=== PATIENT | male | born 1990 | race African-American/Black ===

== ENCOUNTER 2023-07-11 15:33 | Inpatient (IN) | payer OTHER, SELFPAY ==
[2023-07-11] VITALS (37 sets, daily range): BP systolic 177–211; BP diastolic 120–161; PULSE 56–80; RESP 14–61; TEMP 36.7–36.9; O2SAT 97–100; BMI 25.5
--- NOTE | ~2023-07-11 | CT_ITS ---
EXAMINATION: CTA chest abdomen pelvis DATE: 07/11/2023 18:00 QUARANTINE OFFICER INDICATION: Chest pain. Hypertension. Evaluate for dissection. TECHNIQUE: Computed tomographic angiography (CTA) of the chest, abdomen, and pelvis was performed wit hout and with 100 mL Omnipaque-350 intravenous contrast. The dose-length product was 941.59 mGy-cm. M aximum intensity projection 3D-reconstructions of the aorta and other arteries were constructed by eboni gil technologist on a separate workstation. COMPARISON: None. FINDINGS: CHEST CTA: There is mild atherosclerosis of the aortic arch and coronary arteries, accelerated for age. Mild car diomegaly. Left ventricular hypertrophy. No significant pleural or pericardial effusion. No thoracic lymphadenopathy. There is gynecomastia. Calcified mediastinal lymph nodes, consistent with chronic gr anulomatous disease. Dependent atelectasis. No focal pneumonia or pneumothorax. No endobronchial lesi ons. ABDOMEN AND PELVIS CTA: The liver, spleen, pancreas, left adrenal gland and kidneys are unremarkable. There is a low-density lesion of the right adrenal gland measuring 1.4 cm, most likely benign adenoma. Gallbladder is presen t. Nonobstructive bowel gas pattern. There is extensive atherosclerosis of the abdominal aorta and il iac arteries, accelerated for age. No aneurysm. The celiac axis, SMA and renal arteries are patent. I MA is patent. No abnormal pelvic masses or fluid collections. IMPRESSION: 1. Accelerated atherosclerosis for age without evidence for aneurysm or dissection. 2: Cardiomegaly. Reviewed, dictated and finalized at location A. ANTINE OFFICER IMPRESSION: 1. Accelerated atherosclerosis for age without evidence for aneurysm or dissect ion. 2: Cardiomegaly.
--- NOTE | ~2023-07-11 | XR_ITS ---
EXAMINATION: XR chest 1V portable 07/11/2023 16:07 INDICATION: Chest pain and shortness of breath PROCEDURE: AP portable chest COMPARISON: 11/12/2015 FINDINGS: Right basilar infiltrates, suspicious for pneumonia The cardiomediastinal silhouette is wit hin normal limits. There are no pleural effusions. There is no pneumothorax suspected. IMPRESSION: 1: Right basilar infiltrates, suspicious for pneumonia. Reviewed, dictated and finalized at location A. PATIONAL SAFETY AND HEALTH MANAGER
--- NOTE | 2023-07-11 15:41 | ECG_ITS ---
Measurements Intervals [place] Rate: 59 P: 52 VT: 159 QRS: 62 QRSD: 83 T: -7 QT: 406 QTc: 402 Interpretive Statements SINUS BRADYCARDIA LEFT VENTRICULAR HYPERTROPHY WITH SECONDARY REPOLARIZATION ABNORMALITY CANNOT RULE OUT PREVIOUS SEPTAL IN ABNORMAL ECG COMPARED TO ECG 07/11/2023 15:35:01 NO SIGNIFICANT CHANGE Electronically Signed On 07-12-2023 14:57:14 PUBLIC RELATIONS PROFESSIONAL by Manuel Allen M.D.
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
[2023-07-11 15:58] LABS: Basophils Percent Auto 0.4 % (0.2-1.2); Eosinophils Absolute Auto 0.2 K/mm3 (0-0.3); Eosinophils Percent Auto 1.6 % (0-4.4); Hematocrit 42.1 % (42.0-52.0); Hemoglobin 13.8 g/dL (14.0-18.0); Immature Granulocyte Absolute 0.02 K/mm3 (0.00-0.031); Immature Granulocyte Percent A 0.2 % (0-0.5); Lymphocytes Absolute Auto 1.84 K/mm3 (0.9-3.2); Lymphocytes Percent Auto 17.8 % (18.3-44.2); Mean Corpuscular HGB Conc 32.8 g/dl (32-36); Mean Corpuscular Hemoglobin 28.8 pg (26-34); Mean Corpuscular Volume 87.9 fl (80-100); Mean Platelet Volume 10.6 fl (7.4-10.4); Monocytes Absolute Auto 0.9 K/mm3 (0.1-0.6); Monocytes Percent Auto 8.8 % (2.6-8.5); Neutrophils Absolute Auto 7.3 K/mm3 (1.3-6.7); Neutrophils Percent Auto 71.2 % (45.5-73.1); Platelet Count Result 215 k/mm3 (150-375); Red Blood Count 4.79 M/mm3 (4.6-6.20); Red Cell Distribution Width 12.1 % (11.5-14.5); White Blood Count 10.3 K/mm3 (4.5-10.0)
[2023-07-11 16:09] LABS: Partial Thromboplastin Time 27.1 SECONDS (22.3-36.8); Prothrombin Time 13.7 Seconds (11.1-14.7)
[2023-07-11 16:13] LABS: Alanine Aminotransferase 22 U/L (6-50); Albumin Level 4.2 g/dL (3.5-5.1); Alkaline Phosphatase 83 U/L (38-126); Anion Gap 7 mmol/L (8-16); Aspartate Amino Transferase 36 U/L (17-59); Bilirubin,Total 0.5 mg/dL (0.2-1.3); Blood Urea Nitrogen 14 mg/dL (9-20); Calcium 9.4 mg/dL (8.4-10.2); Carbon Dioxide 27 mmol/L (22-30); Chloride 103 mmol/L (98-107); Estimated CRCL calculation 115 ml/min; Estimated Glomerular Filt Rate > 60; Glucose 120 mg/dL (65-110); Lipase 90 U/L (23-300); Potassium 3.8 mmol/L (3.4-5.0); Sodium 137 mmol/L (137-145)
[2023-07-11 16:30] LABS: NT Pro B Type Natriuretic Pept 753 pg/mL (19.9-100); Troponin I 0.917 ng/mL (0.000-0.034)
[2023-07-11 16:49] LABS: Influenza A QL RT-PCR Negative (Negative); Influenza B QL RT-PCR Negative (Negative); SARS-CoV-2 RNA PCR Negative (Negative)
--- NOTE | 2023-07-11 17:27 | ECG_ITS ---
Measurements Intervals [place] Rate: 74 P: 56 VA: 154 QRS: 52 QRSD: 83 T: -56 QT: 382 QTc: 426 Interpretive Statements SINUS RHYTHM POSSIBLE LEFT ATRIAL ENLARGEMENT [-0.1mV P WAVE IN V1/V2] LEFT VENTRICULAR HYPERTROPHY WITH SECONDARY REPOLARIZATION ABNORMALITY ABNORMAL ECG NO PREVIOUS ECG AVAILABLE FOR COMPARISON Electronically Signed On 07-12-2023 13:04:19 DATA REVIEW SPECIALIST by Manuel Allen M.D.
[2023-07-11] MEDS: ESMOLOL HCL 100 MG/10 ML VIAL 20 MG IV PUSH (18:07)
[2023-07-11] MEDS: FUROSEMIDE INJ 40 MG/4 ML VIAL IV PUSH (19:00)
[2023-07-11 19:29] LABS: Amphetamine Screen Urine Negative (Negative); Barbiturate Screen Urine Negative (Negative); Benzodiazepines Screen Urine Negative (Negative); Cannabinoid Screen Urine Positive (Negative); Cocaine Screen Urine Positive (Negative); Methadone Screen Urine Negative (Negative); Opiate Screen Urine Negative (Negative); Phencyclidine Screen Urine Negative (Negative)
[2023-07-11] MEDS: HEPARIN SODIUM 5,000 UNITS/ML VIAL 4000 UNITS IV PUSH (19:46)
[2023-07-11 19:47] LABS: Troponin I 0.795 ng/mL (0.000-0.034)
[2023-07-11] MEDS: HEPARIN SOD/D5W 100 UNITS/ML 25,000 UNITS/250 ML BAG 10 UNITS IV CONT (19:47)
--- NOTE | 2023-07-11 21:35 | ADMGEN ---
This patient, Erwin Manuel, was admitted to Intensive Care Unit-3. Patient/family oriented to hospital policies and general routines including ID bracelet, bed and alarms, visiting hours, pain management, procedures, bathroom and other care routines, personal items, smoking policy, room service/diet, and visiting hours. Information on how to activate the Rapid Response Team has been discussed. Patient/Family are encouraged to report perceived risks to care and to ask questions if they do not understand what they are told or what they should do.
[2023-07-11] MEDS: NITROGLYCERIN/D5W 200 MCG/ML 50 MG/250 ML BTL IV CONT (21:45)
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
[2023-07-12] VITALS (40 sets, daily range): BP systolic 126–213; BP diastolic 67–154; PULSE 54–84; RESP 12–25; TEMP 35.8–36.8; O2SAT 94–100
[2023-07-12] MEDS: LACTATED RINGERS 1,000 ML 125 ML IV CONT ×2 (00:20→07:59)
[2023-07-12 02:25] LABS: Partial Thromboplastin Time 39.1 SECONDS (22.3-36.8)
[2023-07-12] MEDS: levETIRAcetam 500 MG TABLET PO ×3 (04:51→20:56)
[2023-07-12] MEDS: HEPARIN SODIUM 5,000 UNITS/ML VIAL 4000 UNITS IV PUSH ×2 (04:52→11:18)
[2023-07-12 05:08] LABS: Basophils Percent Auto 0.3 % (0.2-1.2); Eosinophils Absolute Auto 0.2 K/mm3 (0-0.3); Eosinophils Percent Auto 1.9 % (0-4.4); Hematocrit 42.3 % (42.0-52.0); Immature Granulocyte Absolute 0.03 K/mm3 (0.00-0.031); Immature Granulocyte Percent A 0.3 % (0-0.5); Lymphocytes Absolute Auto 2.84 K/mm3 (0.9-3.2); Lymphocytes Percent Auto 27.7 % (18.3-44.2); Mean Corpuscular HGB Conc 33.1 g/dl (32-36); Mean Corpuscular Hemoglobin 29.4 pg (26-34); Mean Corpuscular Volume 88.9 fl (80-100); Mean Platelet Volume 11.1 fl (7.4-10.4); Neutrophils Absolute Auto 6.1 K/mm3 (1.3-6.7); Neutrophils Percent Auto 59.8 % (45.5-73.1); Platelet Count Result 210 k/mm3 (150-375); Red Blood Count 4.76 M/mm3 (4.6-6.20); White Blood Count 10.3 K/mm3 (4.5-10.0)
[2023-07-12 05:24] LABS: Anion Gap 9 mmol/L (8-16); Blood Urea Nitrogen 11 mg/dL (9-20); Calcium 9.4 mg/dL (8.4-10.2); Carbon Dioxide 23 mmol/L (22-30); Chloride 102 mmol/L (98-107); Estimated CRCL calculation 115 ml/min; Estimated Glomerular Filt Rate > 60; Glucose 105 mg/dL (65-110); Potassium 3.6 mmol/L (3.4-5.0); Sodium 134 mmol/L (137-145)
--- NOTE | 2023-07-12 06:00 | ECHO_ITS ---
Patient Info Name: Erwin Manuel Age: 33 years : 1990 Gender: Male Ht: 73 in Wt: 193 lbs BSA: 2.13 m2 HR: 66 bpm BP: 170 / 119 mmHg Heart Rhythm: Sinus Rhythm Technical Quality: Fair Exam Date: 07/12/2023 7:35 AM Exam Location: Echo Lab Patient Status: Inpatient Admit Date: 07/11/2023 Staff Ordering Physician: Shannon Rosen MD Zinc Miner Blasting: Soni Arambula RDCS Attending Provider: Zoey Lozano DO Referring Physician: Silas LEVY; Exam Type: CA echo doppler color flow Study Info Indications - NSTEMI Complete two-dimensional, color flow and Doppler transthoracic echocardiogram is performed. Summary 1. Complete two-dimensional, color flow and Doppler transthoracic echocardiogram is performed. 2. Severe concentric left ventricular hypertrophy with mild global systolic dysfunction. 3. No valvular abnormalities. Left Ventricle Left ventricular chamber dimension is mildly enlarged. Left ventricular systolic function is mildly reduced, estimated at 40-45%. There is severe concentric increased left ventricular wall thickness. The left ventricular diastolic function is grade I diastolic dysfunction. Right Ventricle Right ventricular chamber dimension is normal. Left Atria Left atrial chamber dimension is mildly enlarged. Right Atria Right atrial chamber dimension is normal. Aortic Valve The aortic valve is normal. Pulmonic Valve The pulmonic valve is normal. Mitral Valve The mitral valve has normal leaflets. Tricuspid Valve The tricuspid valve leaflets are normal. Pericardium/Pleural The pericardium appears normal. Aorta The aortic root size at the sinus of Valsalva is normal. Left Ventricular Outflow Tract Name Value Normal LVOT 2D LVOT Diameter 2.0 cm LVOT Doppler LVOT Peak Gradient 2 mmHg LVOT Mean Gradient 1 mmHg LVOT VTI 12 cm LVOT VTI/AV VTI Ratio 0.5 LVOT Stroke Volume 38 ml LVOT CO 2.1 l/min LVOT CI 1.0 l/min/m2 Pulmonic Valve Name Value Normal RVOT Doppler RVOT Peak Gradient 1 mmHg PV Doppler PV Peak Gradient 3 mmHg Mitral Valve Name Value Normal MV Doppler MV Decel [place] 486 cm/s2 MV PHT 42 ms MV Area (PHT) 5.2 cm2 4.0-5.0 MV Diastolic Function M
--- NOTE | 2023-07-12 07:40 | PC.NURSE ---
New order for Nitroglycerin gtt entered under Dr. Yepez for the titration of the medication to sustain SBP 160-180. ED order for Nitroglycerin d/c'd per MD order.
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
--- NOTE | 2023-07-12 08:17 | WPDCNINT ---
Assessment and Plan Assessment and plan (1) NSTEMI (non-ST elevated myocardial infarction): Code(s): I21.4 - Non-ST elevation (NSTEMI) myocardial infarction Status: Acute Assessment and Plan: Patient presented with chest pain, elevated troponins which peaked at 2.7 this morning on 07/12 -patient was started on heparin infusion upon admission -appreciate cardiology evaluation and recommendations, patient will be taken to cardiac catheterization for an angiography -according the claims sorter's note echocardiogram which been done will as he was evaluating the patient, echo did appear to show evidence of LV systolic dysfunction, complete echocardiogram result has not been reported -will continue aspirin (2) Hypertensive emergency: Code(s): I16.1 - Hypertensive emergency Status: Acute Assessment and Plan: Patient presented with blood pressures of 200/131 in the ER -patient did test positive for cocaine and his drug screen -patient was started on nitroglycerin infusion, will titrate to maintain SBP 160-180 mmHg -patient has been started on his home amlodipine, lisinopril, hydralazine -will continue to monitor blood pressures closely (3) Cocaine abuse: Code(s): F14.10 - Cocaine abuse, uncomplicated Status: Acute Assessment and Plan: Patient history of cocaine abuse, have counseled patient on cessation (4) Alcohol abuse: Code(s): F10.10 - Alcohol abuse, uncomplicated Status: Acute Assessment and Plan: Counseled patient on cessation of alcohol use along with cocaine and tobacco use - patient has been started on thiamine and folic acid -will watch for alcohol withdrawal (5) Tobacco abuse disorder: Code(s): Z72.0 - Tobacco use Status: Acute Assessment and Plan: Counseled patient on tobacco cessation Plan DVT prophylaxis: Heparin infusion Stress ulcer prophylaxis: Not indicated Nutrition: NPO Code Status: Full code Critical Care Time Spent: 46 minutes Due to a high probability of clinically significant, life threatening deterioration, the patient required my highest level of preparedness to intervene emergently and I personally spent this critical care time directly and personally managing the patient. This critical care time included obtaining a history; examining the patient; pulse oximetry; ordering and review of studies; arranging urgent treatment with development of a management plan; evaluation of patient's response to treatment; frequent reassessment; and discussions with other providers. It was exclusive of separately billable procedures and treating other patients and teaching time. Please see Assessment and Plan section and the rest of the note for further information on patient assessment and treatment This dictation may have been done utilizing a voice recognition system. Attempts have been made to correct errors. However, there may be uncorrected grammatical, spelling, and recognitions errors present. Shaft Headman Consult Note Consult date: 07/12/23 Reason for consult: NSTEMI, hypertensive emergency, heart failure HPI: Erwin Manuel is a 33 year old male with past medical history of essential hypertension, hyperlipidemia, tobacco abuse, cocaine abuse, seizure disorder depression, alcohol abuse presented the ED on 07/11/2023 with complains of intermittent chest pain last couple of months. Patient stated he had nonexertional chest pain, nonradiating. Not associated with diaphoresis, shortness of breath, nausea vomiting. On the day of admission this chest pain was more severe and felt a sense of chest tightness. In the ED ER patient was also found to have hypertensive urgency with a blood pressure of 200/131. EKG showed some early repolarization with no ST-elevation. Patient also was tested positive for cocaine in his drug screen. CTA was negative for dissection. Has a family history of coronary artery disease is and stated that h
[2023-07-12] MEDS: CITALOPRAM HYDROBROMIDE 20 MG TABLET 40 MG PO (08:35)
[2023-07-12] MEDS: PHENYTOIN SODIUM 100 MG EXTENDED RELEASE CAP 200 MG PO ×3 (08:36→16:24)
[2023-07-12] MEDS: THIAMINE HCL 100 MG TABLET PO (08:36)
[2023-07-12] MEDS: GABAPENTIN 300 MG CAPSULE PO ×3 (08:36→16:24)
[2023-07-12] MEDS: lisinopriL 20 MG TABLET 40 MG PO (08:36)
[2023-07-12] MEDS: FOLIC ACID 1 MG TABLET PO (08:36)
[2023-07-12] MEDS: hydrALAZINE HCL 50 MG TABLET PO ×2 (08:36→16:24)
[2023-07-12] MEDS: amLODIPine BESYLATE 5 MG TABLET 10 MG PO (08:36)
[2023-07-12] MEDS: NITROGLYCERIN/D5W 200 MCG/ML 50 MG/250 ML BTL IV CONT (09:30)
[2023-07-12] MEDS: ASPIRIN 81 MG CHEWABLE TABLET PO (10:24)
[2023-07-12 11:10] LABS: Partial Thromboplastin Time 50.3 SECONDS (22.3-36.8)
--- NOTE | 2023-07-12 11:17 | WPDMODSED ---
Moderate Sedation Note-Pt Data Patient Data Diagnosis: chest pain/elevated troponin longstanding hypertension cocaine abuse Present Complaint: this is a 33-year-old man presented to hospital with chest pain and he had a moderate troponin rise following admission. electrocardiogram did not show any evidence of acute current of injury. He appears to have some LV systolic dysfunction by echo. In this setting an angiogram has been recommended. He also has a history of cocaine abuse Procedure to be performed/Plan: left heart catheterization Allergies Allergy/AdvReac Type Severity Reaction Status Date / Time bee venom protein (honey bee) Allergy Dyspnea / Verified 07/11/23 15:43 [bees] SOB honey Allergy Dyspnea / Verified 07/11/23 15:43 SOB peanut Allergy Dyspnea / Verified 07/11/23 15:43 SOB Home Medications Medication Instructions Recorded Confirmed Type amlodipine 10 mg tablet 10 mg PO DAILY 07/11/23 07/11/23 History citalopram 40 mg tablet 40 mg PO DAILY 07/11/23 07/11/23 History folic acid 1 mg tablet 1 mg PO DAILY 07/11/23 07/11/23 History gabapentin 300 mg capsule 300 mg PO Q8-12H 07/11/23 07/11/23 History hydralazine 50 mg tablet 50 mg PO BID 07/11/23 07/11/23 History levetiracetam 500 mg tablet 500 mg PO BID 07/11/23 07/11/23 History lisinopril 40 mg tablet 40 mg PO DAILY 07/11/23 07/11/23 History phenytoin sodium extended 100 mg 200 mg PO Q8-12H 07/11/23 07/11/23 History capsule thiamine HCl (vitamin B1) 100 mg 100 mg PO DAILY 07/11/23 07/11/23 History tablet Current Medications: Active Medications Acetaminophen (Acetaminophen 325 Mg Tablet) 650 mg PO Q4H PRN PRN Reason: Mild Pain (1-3) or Fever Amlodipine Besylate (Amlodipine Besylate 5 Mg Tablet) 10 mg PO DAILY [facility] Last Admin: 07/12/23 08:36 Dose: 10 mg Aspirin (Aspirin 81 Mg Chewable Tablet) 81 mg PO DAILY@0800 [facility] Last Admin: 07/12/23 10:24 Dose: 81 mg Citalopram Hydrobromide (Citalopram Hydrobromide 20 Mg Tablet) 40 mg PO DAILY [facility] Last Admin: 07/12/23 08:35 Dose: 40 mg Folic Acid (Folic Acid 1 Mg Tablet) 1 mg PO DAILY [facility] Last Admin: 07/12/23 08:36 Dose: 1 mg Gabapentin (Gabapentin 300 Mg Capsule) 300 mg PO TID [facility] Last Admin: 07/12/23 08:36 Dose: 300 mg Heparin Sodium (Porcine) (Heparin Sodium 5,000 Units/Ml Vial) 4,000 units IV PUSH PRN PRN PRN Reason: aPTT less than 55 seconds Last Admin: 07/12/23 04:52 Dose: 4,000 units Heparin Sodium (Porcine) (Heparin Sodium 5,000 Units/Ml Vial) 4,000 units IV PUSH PRN PRN PRN Reason: aPTT 55 - 70 seconds Hydralazine HCl (Hydralazine Hcl 50 Mg Tablet) 50 mg PO BIDWM [facility] Last Admin: 07/12/23 08:36 Dose: 50 mg Heparin Sodium/Dextrose (Heparin Sodium/D5w 100 Units/Ml) 25,000 units in 250 mls @ 14 mls/hr IV CONT .[id number] [facility]; Protocol Last Titration: 07/12/23 04:53 Dose: 1,400 units/hr, 14 mls/hr Lactated Ringer's (Lr - Lactated Ringers Iv) 1,000 mls @ 75 mls/hr IV CONT .[id number] [facility] Last Infusion: 07/12/23 08:06 Dose: 75 mls/hr Nitroglycerin/Dextrose (Nitroglycerin In 5% Dextrose 50 Mg) 50 mg in 250 mls @ 7.5 mls/hr IV CONT .Q24H [facility]; Protocol Last Titration: 07/12/23 10:51 Dose: 25 mcg/min, 7.5 mls/hr Levetiracetam (Levetiracetam 500 Mg Tablet) 500 mg PO Q12HR [facility] Last Admin: 07/12/23 08:36 Dose: 500 mg Lisinopril (Lisinopril 20 Mg Tablet) 40 mg PO DAILY [facility] Last Admin: 07/12/23 08:36 Dose: 40 mg Ondansetron HCl (Ondansetron Inj 4 Mg/2 Ml Vial) 4 mg IV PUSH Q4H PRN PRN Reason: Nausea Perflutren Lipid Microsphere (Perflutren Lipid Microspheres 1.5 Ml Vial Diluted To 10 Ml Total Volume) 0 ml IV PUSH ONCE PRN; Protocol PRN Reason: adequate visualization Stop: 07/14/23 20:27 Phenytoin Sodium (Phenytoin Sodium 100 Mg Extended Release Cap) 200 mg PO TID [facility] Last Admin: 07/12/23 08:36 Dose: 200 mg Thiamine HCl (Thiamine Hcl 100 Mg Tablet) 100 mg PO DAILY [facility] Last Admin: 07/12/23 08:36 Dose: 100 mg Sedation/Ane
--- NOTE | 2023-07-12 11:40 | PC.NURSE ---
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 Nitroglycerin gtt sent with patient. Heparin gtt and fluids stopped by geochemical laboratory technician team
--- NOTE | 2023-07-12 12:24 | WPDCARDPROC ---
Cardiac Cath Procedure Note Date of procedure:: 07/12/23 Performing physician:: Manuel Allen MD Indication:: acute coronary syndrome/ non ST elevation CA Brief clinical history:: this is a 33-year-old man with a history of hypertension, cigarette smoking as well as cocaine and alcohol abuse. He entered the hospital yesterday with some chest pain and has had a moderate troponin rise. In the setting of this angiography has been recommended. Procedure Procedure performed:: Left ventriculogram coronary angiogram Angio-Seal to right femoral artery Sedation/Medication given:: fentanyl 50 mg Versed 2 mg case start time 11:58 a.m. case end time 12:20 p.m. sedation provided by Ousmane Diego RN, trained observer Access site:: right femoral artery Estimated blood loss:: 25 cc Procedure note:: patient was brought to the cardiac catheterization lab in the postabsorptive state where the right femoral triangle was prepared and draped in the usual fashion. Anesthesia was provided with 1% lidocaine infiltrated locally. Using the modified Seldinger technique a 5 Malagasy sheath was placed into the right femoral artery. After this left heart catheterization was carried out. I used a 5 Malagasy angled pigtail catheter to measure left-sided hemodynamics as well as to inject left ventriculogram in the 30 degree [id number] projection. Following this a 5 Malagasy FL4 catheter was used to engage inject the left coronary artery in multiple projections and then a 5 Malagasy JR4 catheter was used to engage and inject the right coronary artery. The cineangiograms were then reviewed and the case was terminated. An angiogram was done of the femoral artery through the sheath after which a 6 Malagasy Angio-Seal device was deployed with a good hemostatic result. Procedure was well tolerated and uncomplicated. Findings:: Hemodynamics: Central aortic pressure was 172 over 105 left ventricle 172 over 3 and diastolic pressure 14 there is no gradient on pullback across the aortic valve. Left ventricle: The LV is modestly enlarged and significantly hypertrophied there is global hypokinesia with an ejection fraction of about 35-40%. the coronary arteries are all large in caliber ectatic and tortuous in appearance Left main coronary artery is large caliber has some mild plaquing but no significant disease is seen. The anterior descending is a large caliber somewhat tortuous vessel. There is no significant stenosis in the LAD itself. There is about 40-50% stenosis in the mid to distal segment of the LAD. The major diagonal branch has proximal stenosis of about 80% and 80-90% diffuse distal stenosis distal to that this is a trifurcating diagonal branch. The circumflex is a ectatic vessel in as well. The circumflex has significant proximal tortuosity there is a paucity of marginal branches. The largest distal OM branches free of significant disease. the right coronary artery is large in caliber also ectatic and rather tortuous. The right coronary is free of significant disease in the trunk of the RCA. There is abrupt change in caliber in the midportion of the RPDA with KHADRA 2 flow distal to this. The distal RPDA can be seen to be collateralized from the LAD left coronary injections. Conclusion:: 1. Right coronary circulation with coronary arteries that are also ectatic, dilated and tortuous. 2. About 40-50% stenosis in the mid to distal LAD, approximately 80-90% stenosis in the major diagonal branch which is a diffusely diseased vessel. 3. Large ectatic Nicole dilated and tortuous right coronary artery without significant lesions the until the RPDA which appears to have significant mid stenosis which is also collateralized distal to that foot via the LAD. 4. Moderate left ventricular systolic dysfunction 5. significant hypertension Manuel Allen MD [facility]
--- NOTE | 2023-07-12 12:32 | PM.PNCARD ---
Progress Note: A&P Assessment and Plan (1) NSTEMI (non-ST elevated myocardial infarction): Code(s): I21.4 - Non-ST elevation (NSTEMI) myocardial infarction Status: Acute Plan 33-year-old man with longstanding hypertension also unfortunately with alcohol and cocaine abuse. Patient presents with non ST elevation AR and has surprisingly diffuse coronary artery disease at a premature age. He has coronary is that are ectatic, dilated and rather tortuous. the only notable high-grade lesion appears to be in the major diagonal branch of the LAD which is a diffusely diseased artery as well as high-grade stenosis in the mid RPDA which is collateralized via the anterior descending. He has severe hypertension and moderate LV systolic dysfunction. At this point I would recommend optimizing medical/guideline directed medical therapy for this. Because of the nature of his coronary disease as well as the on likelihood of compliance with anti-platelet therapy he is a suboptimal candidate for PCI in my opinion Manuel Allen MD [facility] Subjective Date/time seen: date of service:07/12/23 12:32 Interval history: 33-year-old man with: Chest pain, Wilber biomarkers consistent with non ST elevation AR also with history of significant hypertension and cocaine and alcohol abuse. Catheterization this afternoon demonstrates remarkably premature coronary artery disease with a coronary arteries that are ectatic Nicole dilated and rather tortuous. The only high-grade lesion noted is in a diagonal branch of the LAD which is a diffusely diseased artery as well. Medical therapy for this is going to be recommended given the fact that the vessels are certainly not ideal for PCI and his reliability/compliance with follow-up and adherence to antiplatelet therapy is a significant concern Exam Const: General: comfortable and no acute distress Other: well-developed well-nourished gentleman no distress HENMT: Mouth: Yes moist mucous membranes Eyes: Sclera: sclerae normal Neck: Neck: supple and no JVD Resp: Effort & Inspection: normal respiratory effort Auscultation: clear to auscultation bilaterally Cardio: Rate: regular rate Rhythm: regular rhythm GI: GI Palp: Yes Soft to palpation Auscultation: normal bowel sounds Skin: General skin exam: normal color Neuro: Other: alert and oriented x3 Extrem: Other: no edema, adequate perfusion Objective Data Vital Signs Vital Signs: Vital Signs - 24 hr 07/11/23 15:31 07/11/23 15:31 07/11/23 15:52 Temperature Pulse Rate 75 74 Respiratory Rate 20 Blood Pressure 200/131 H Pulse Oximetry 100 99 Oxygen Delivery Room Air Room Air 07/11/23 16:30 07/11/23 18:06 07/11/23 17:28 Temperature Pulse Rate 60 Respiratory Rate 23 H Blood Pressure 193/127 H 211/137 H Pulse Oximetry 100 Oxygen Delivery 07/11/23 17:30 07/11/23 18:02 07/11/23 18:08 Temperature Pulse Rate 60 67 Respiratory Rate 16 17 Blood Pressure 211/137 H Pulse Oximetry 99 97 99 Oxygen Delivery 07/11/23 18:15 07/11/23 18:16 07/11/23 18:30 Temperature Pulse Rate 70 68 62 Respiratory Rate 17 17 16 Blood Pressure 194/144 H Pulse Oximetry 99 98 99 Oxygen Delivery 07/11/23 19:13 07/11/23 19:14 07/11/23 19:15 Temperature 36.9 C Pulse Rate 64 64 Respiratory Rate 15 Blood Pressure 184/126 H Pulse Oximetry 100 100 Oxygen Delivery Room Air 07/11/23 19:28 07/11/23 19:53 07/11/23 18:45 Temperature Pulse Rate 65 76 72 Respiratory Rate 15 24 H 18 Blood Pressure 206/120 H 205/134 H Pulse Oximetry 100 100 Oxygen Delivery 07/11/23 18:47 07/11/23 19:02 07/11/23 19:17 Temperature Pulse Rate 69 64 60 Respiratory Rate 17 21 H 20 Blood Pressure 182/134 H 206/120 H Pulse Oximetry 100 Oxygen Delivery 07/11/23 19:18 07/11/23 19:30 07/11/23 19:45 Temperature Pulse Rate 70 71 74 Respiratory Rate 17 23
--- NOTE | 2023-07-12 12:43 | PC.NURSE ---
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 Nitro gtt infusing at 30mcg/min
[2023-07-12] MEDS: SODIUM CHLORIDE 0.9% IV 1,000 ML 125 ML IV CONT (12:48)
[2023-07-12] MEDS: METOPROLOL SUCCINATE EXT REL 25 MG TABCR PO (13:08)
[2023-07-12] MEDS: ROSUVASTATIN 20 MG TABLET PO (13:08)
[2023-07-12] MEDS: ACETAMINOPHEN 325 MG TABLET 650 MG PO (20:56)
[2023-07-12] MEDS: LABETALOL HCL INJ 100 MG/20 ML VIAL 20 MG IV PUSH (20:56)
[2023-07-13] VITALS (16 sets, daily range): BP systolic 124–175; BP diastolic 76–125; PULSE 59–86; RESP 9–16; TEMP 36–37.1; O2SAT 98–100
[2023-07-13] MEDS: hydrALAZINE HCL 20 MG/ML VIAL 10 MG IV PUSH (04:19)
[2023-07-13 04:42] LABS: Basophils Percent Auto 0.3 % (0.2-1.2); Eosinophils Absolute Auto 0.1 K/mm3 (0-0.3); Eosinophils Percent Auto 1.6 % (0-4.4); Hematocrit 43.8 % (42.0-52.0); Hemoglobin 14.2 g/dL (14.0-18.0); Immature Granulocyte Absolute 0.02 K/mm3 (0.00-0.031); Immature Granulocyte Percent A 0.2 % (0-0.5); Lymphocytes Absolute Auto 1.97 K/mm3 (0.9-3.2); Lymphocytes Percent Auto 22.5 % (18.3-44.2); Mean Corpuscular HGB Conc 32.4 g/dl (32-36); Mean Corpuscular Hemoglobin 28.9 pg (26-34); Mean Platelet Volume 10.4 fl (7.4-10.4); Neutrophils Absolute Auto 5.6 K/mm3 (1.3-6.7); Neutrophils Percent Auto 64.4 % (45.5-73.1); Platelet Count Result 210 k/mm3 (150-375); Red Blood Count 4.92 M/mm3 (4.6-6.20); Red Cell Distribution Width 12.4 % (11.5-14.5); White Blood Count 8.8 K/mm3 (4.5-10.0)
[2023-07-13 04:54] LABS: Alanine Aminotransferase 21 U/L (6-50); Albumin Level 4.5 g/dL (3.5-5.1); Alkaline Phosphatase 82 U/L (38-126); Anion Gap 11 mmol/L (8-16); Aspartate Amino Transferase 44 U/L (17-59); Bilirubin,Total 0.6 mg/dL (0.2-1.3); Blood Urea Nitrogen 10 mg/dL (9-20); Calcium 9.9 mg/dL (8.4-10.2); Carbon Dioxide 23 mmol/L (22-30); Chloride 104 mmol/L (98-107); Cholesterol 281 mg/dL (0-200); Estimated CRCL calculation 115 ml/min; Estimated Glomerular Filt Rate > 60; Glucose 116 mg/dL (65-110); HDL Direct 59 mg/dL; Phosphorus 4.9 mg/dL (2.5-4.5); Potassium 3.7 mmol/L (3.4-5.0); Sodium 138 mmol/L (137-145); Triglycerides 75 mg/dL (<150)
[2023-07-13 05:05] LABS: LDL Cholesterol Direct 161 mg/dL
--- NOTE | 2023-07-13 05:15 | PC.NURSE ---
This patient, Erwin Manuel, was received from ICU 3 on 07/13/23 at 0442. Patient/family oriented to unit policies and routines
[2023-07-13] MEDS: ROSUVASTATIN 20 MG TABLET PO (08:56)
[2023-07-13] MEDS: PHENYTOIN SODIUM 100 MG EXTENDED RELEASE CAP 200 MG PO ×3 (08:56→16:41)
[2023-07-13] MEDS: GABAPENTIN 300 MG CAPSULE PO ×3 (08:56→16:41)
[2023-07-13] MEDS: levETIRAcetam 500 MG TABLET PO (08:56)
[2023-07-13] MEDS: amLODIPine BESYLATE 5 MG TABLET 10 MG PO (08:56)
[2023-07-13] MEDS: METOPROLOL SUCCINATE EXT REL 25 MG TABCR PO (08:56)
[2023-07-13] MEDS: hydrALAZINE HCL 50 MG TABLET PO ×3 (08:56→16:41)
[2023-07-13] MEDS: FOLIC ACID 1 MG TABLET PO (08:56)
[2023-07-13] MEDS: ASPIRIN 81 MG CHEWABLE TABLET PO (08:56)
[2023-07-13] MEDS: lisinopriL 20 MG TABLET 40 MG PO (08:56)
[2023-07-13] MEDS: THIAMINE HCL 100 MG TABLET PO (08:56)
[2023-07-13] MEDS: CITALOPRAM HYDROBROMIDE 20 MG TABLET 40 MG PO (08:56)
--- NOTE | 2023-07-13 09:56 | PM.PNCARD ---
Progress Note: A&P Assessment and Plan (1) NSTEMI (non-ST elevated myocardial infarction): Code(s): I21.4 - Non-ST elevation (NSTEMI) myocardial infarction Status: Acute Assessment and Plan: 33-year-old man with longstanding hypertension also unfortunately with alcohol and cocaine abuse. Patient presents with non ST elevation [place] and has surprisingly diffuse coronary artery disease at a premature age. He has coronary is that are ectatic, dilated and rather tortuous. the only notable high-grade lesion appears to be in the major diagonal branch of the LAD which is a diffusely diseased artery as well as high-grade stenosis in the mid RPDA which is collateralized via the anterior descending. Medical therapy has been recommended for treatment of this. Continue ASA, statin Add plavix Continue aggressive risk factor modification for CAD BP control Alcohol and cocaine cessation OK for discharge today from cardiac standpoint (2) Hypertension: Code(s): I10 - Essential (primary) hypertension Status: Acute Assessment and Plan: Improved but remains elevated. Will increase hydralazine to 50mg t.i.d. Continue the rest of his antihypertensive regimen without change. Further adjustments can be made as an outpatient. Subjective Date/time seen: 07/13/23 09:56 Interval history: 33-year-old man with: Chest pain, Wilber biomarkers consistent with non ST elevation IN also with history of significant hypertension and cocaine and alcohol abuse. Catheterization this afternoon demonstrates remarkably premature coronary artery disease with a coronary arteries that are ectatic Nicole dilated and rather tortuous. The only high-grade lesion noted is in a diagonal branch of the LAD which is a diffusely diseased artery as well. Medical therapy for this is going to be recommended given the fact that the vessels are certainly not ideal for PCI and his reliability/compliance with follow-up and adherence to antiplatelet therapy is a significant concern Date of service 07/13/23: Feeling well this morning. No chest pain, shortness of breath, palpitations. Review of Systems Constitutional: Constitutional: Reports no additional constitutional complaints Eyes: Eyes: Reports no additional eye complaints ENT: Reports system reviewed and no additional complaints, except as documented Cardiovascular: Cardiovascular: Reports as per HPI Respiratory: Respiratory: Reports no additional respiratory complaints Gastrointestinal: Gastrointestinal: Reports no additional gastrointestinal complaints Musculoskeletal: Musculoskeletal: Reports no additional musculoskeletal complaints Integumentary/Breasts: Skin/Breast: Reports system reviewed and no additional complaints, except as docu Endocrine: Endocrine: Reports no additional endocrine complaints Hematologic/Lymphatic: Hematologic/Lymphatic: Reports no additional hematologic/lymphatic complaints Allergic/Immunologic: Allergic/Immunologic: Reports no additional allergic/immunologic complaints Exam Const: General: comfortable and no acute distress Other: well-developed well-nourished gentleman no distress HENMT: Mouth: Yes moist mucous membranes Eyes: Sclera: sclerae normal Neck: Neck: supple and no JVD Resp: Effort & Inspection: normal respiratory effort Auscultation: clear to auscultation bilaterally Cardio: Rate: regular rate Rhythm: regular rhythm Heart sounds: S1 normal heart sound present, S2 normal heart sound present and no murmurs GI: Auscultation: normal bowel sounds Skin: General skin exam: normal color Neuro: Other: alert and oriented x3 Extrem: Other: no edema, adequate perfusion R groin arterial insertion site free from bleeding, pain, hematoma. Objective Data Vital Signs Vital Signs: Vital Signs - 24 hr 07/12/23 10:01 07/12/23 10:00 07/12/23 10:00 Temperature Pulse Rate 71 71 Respiratory Rate 1
--- NOTE | 2023-07-13 11:46 | PM.IMPN ---
Progress Note: A&P Assessment and Plan (1) NSTEMI (non-ST elevated myocardial infarction): Code(s): I21.4 - Non-ST elevation (NSTEMI) myocardial infarction Status: Acute Assessment and Plan: Patient presented with chest pain, elevated troponins which peaked at 2.7 on 07/12 -patient was started on heparin infusion upon admission -appreciate cardiology evaluation and recommendations, patient will be taken to cardiac catheterization for an angiography Echo 07/12/2023: Severe concentric left ventricular hypertrophy with mild global systolic function EF 40-45%. Grade 1 diastolic dysfunction. No valvular abnormalities. Cardiac catheterization 07/12/2023: 40-50% stenosis in the mid to distal LAD proximally 80-90% stenosis in the major diagonal branch which is diffusely diseased. Large in caliber and dilated and tortuous right coronary artery without significant lesions until the RPDA which appears to have significant mid stenosis which is also collateralized distal to that from LAD left coronary -will continue aspirin statin Plavix added Need to be on statin on rosuvastatin now. LDL 160 (2) Hypertensive emergency: Code(s): I16.1 - Hypertensive emergency Status: Acute Assessment and Plan: Patient presented with blood pressures of 200/131 in the ER -patient did test positive for cocaine and his drug screen -patient was started on nitroglycerin infusion, will titrate to maintain SBP 160-180 mmHg -patient has been started on his home amlodipine, lisinopril, hydralazine Hydralazine does has been adjusted to 50 t.i.d. titrate for goal blood pressure. (3) Cocaine abuse: Code(s): F14.10 - Cocaine abuse, uncomplicated Status: Acute Assessment and Plan: Patient history of cocaine abuse, have counseled patient on cessation (4) Alcohol abuse: Code(s): F10.10 - Alcohol abuse, uncomplicated Status: Acute Assessment and Plan: Counseled patient on cessation of alcohol use along with cocaine and tobacco use - patient has been started on thiamine and folic acid -will watch for alcohol withdrawal (5) Tobacco abuse disorder: Code(s): Z72.0 - Tobacco use Status: Acute Assessment and Plan: Counseled patient on tobacco cessation Plan DVT prophylaxis: Heparin infusion will be switched to Lovenox Stress ulcer prophylaxis: Not indicated Nutrition: Cardiac Code Status: Full code Subjective Date/time seen: 07/13/23 11:46 Interval history: No overnight events. No chest pain or shortness of breath. No abdominal pain. Review of Systems Review of Systems: All systems reviewed & are unremarkable except as noted in HPI and below Exam Narrative: General: Pleasant male in no acute distress HEENT:? Pupils equal and reactive, sclera is clear, moist oral mucosa Neck:? Supple Respiratory:? Clear to auscultation bilaterally, adequate air entry, no wheezing Cardiac:? S1-S2 is normal, sinus bradycardia, no murmurs Abdomen:? Soft, nontender, nondistended, normoactive bowel sounds Extremities:? No edema, palpable pedal pulses Neuro:? Patient is awake, alert, oriented, nonfocal Skin:? Warm and dry Psych:? Normal mood Objective Data Vital Signs Vital Signs: Vital Signs - 24 hr 07/12/23 12:45 07/12/23 12:47 07/12/23 13:01 Temperature 96.4 F L 97.9 F Pulse Rate 79 76 Respiratory Rate 16 16 Blood Pressure 158/94 H 158/94 H 154/87 H Pulse Oximetry 94 96 07/12/23 13:08 07/12/23 13:00 07/12/23 13:10 Temperature Pulse Rate 65 Respiratory Rate Blood Pressure 154/87 H 157/91 H Pulse Oximetry 07/12/23 13:15 07/12/23 13:30 07/12/23 13:45 Temperature Pulse Rate 72 70 66 Respiratory Rate 12 15 16 Blood Pressure 173/100 H 173/102 H 167/107 H Pulse Oximetry 99 99 99 07/12/23 14:15 07/12/23 14:00 07/12/23 14:15 Temperature 98.2 F Pulse Rate 69 68 Respiratory Rate 16 Blood Pressure 167/126 H 150/116 H Pulse Oxime
--- NOTE | 2023-07-13 17:44 | PM.DS ---
DS: Admitting Diagnosis Discharge Date 07/13/2023 Admitting Diagnosis Chest pain DS: Discharge Diagnosis Discharge Diagnosis (1) NSTEMI (non-ST elevated myocardial infarction): Code(s): I21.4 - Non-ST elevation (NSTEMI) myocardial infarction Status: Acute (2) Hypertensive emergency: Code(s): I16.1 - Hypertensive emergency Status: Acute (3) Cocaine abuse: Code(s): F14.10 - Cocaine abuse, uncomplicated Status: Acute (4) Alcohol abuse: Code(s): F10.10 - Alcohol abuse, uncomplicated Status: Acute (5) Tobacco abuse disorder: Code(s): Z72.0 - Tobacco use Status: Acute DS: Summary Hospital Course Hospital Course: # non ST elevation [place]: Patient presented with chest pain, elevated troponins which peaked at 2.7 on 07/12 -patient was started on heparin infusion upon admission -appreciate cardiology evaluation and recommendations, patient will be taken to cardiac catheterization for an angiography Echo 07/12/2023:? Severe concentric left ventricular hypertrophy with mild global systolic function EF 40-45%.? Grade 1 diastolic dysfunction.? No valvular abnormalities.? Cardiac catheterization 07/12/2023:? 40-50% stenosis in the mid to distal LAD proximally 80-90% stenosis in the major diagonal branch which is diffusely diseased.? Large in caliber and dilated and tortuous right coronary artery without significant lesions until the RPDA which appears to have significant mid stenosis which is also collateralized distal to that from LAD left coronary -will continue aspirin statin Plavix added Need to be on statin on rosuvastatin now.? LDL 160 # hypertensive emergency with blood pressure 201/31 in the ER. Patient did test positive for cocaine and was started on nitroglycerin infusion. He was subsequently started on his home medication amlodipine lisinopril hydralazine. Hydralazine dose was adjusted to 50 t.i.d. blood pressure improved with this. Will continue to follow up as an outpatient basis for adjustment of his blood pressure medication # cocaine abuse counseled on cessation # alcohol abuse: Counseled on cessation # tobacco abuse counseled on cessation DVT prophylaxis was on heparin infusion Diet cardiac Time Spent with Patient Time attestation: Total time spent providing and/or coordinating discharge services: 45 minutes Exam Narrative: General: Pleasant male in no acute distress HEENT:? Pupils equal and reactive, sclera is clear, moist oral mucosa Neck:? Supple Respiratory:? Clear to auscultation bilaterally, adequate air entry, no wheezing Cardiac:? S1-S2 is normal, sinus bradycardia, no murmurs Abdomen:? Soft, nontender, nondistended, normoactive bowel sounds Extremities:? No edema, palpable pedal pulses Neuro:? Patient is awake, alert, oriented, nonfocal Skin:? Warm and dry Psych:? Normal mood DS: Data Data Completed and Pending Completed studies during hospitalization: Exam Type: ? ? CA echo doppler color flow Study Info Indications ?? ? - NSTEMI Complete two-dimensional, color flow and Doppler transthoracic echocardiogram is performed. Account #: ? ? [id number] Summary ? 1. Complete two-dimensional, color flow and Doppler transthoracic echocardiogram is performed. ? 2. Severe concentric left ventricular hypertrophy with mild global systolic dysfunction. ? 3. No valvular abnormalities. Left Ventricle ? Left ventricular chamber dimension is mildly enlarged. ? Left ventricular systolic function is mildly reduced, estimated at 40-45%. ? There is severe concentric increased left ventricular wall thickness. ? The left ventricular diastolic function is grade I diastolic dysfunction. Right Ventricle ? Right ventricular chamber dimension is normal. Left Atria ? Left atrial chamber dimension is mildly enlarged. Right Atria ? Right atrial chamber dimension is normal. Aortic Valve ? The aortic valve is normal. Pulmonic Valve ? Th
== END 2023-07-13 22:10 | disposition home or self-care (01) | DRG 190 ==
LOC: ANHED 17:07 → ANHICU 20:45 → ANHIMU 07-13 14:11 → ANHICU 07-14 12:58 → ANHIMU 07-14 12:58
PROVIDERS: Internal Medicine; Specialist; Admitting Provider Internal Medicine; Emergency Provider Student in an Organized Health Care Education/Training Program; Visit Provider Internal Medicine
PROC: 4A023N7 Measurement of Cardiac Sampling and Pressure, Left Heart, Percutaneous Approach (ICD-10-PCS; CPT 93452; principal; 2023-07-12 10:00)
PROC: 4A023N7 Measurement of Cardiac Sampling and Pressure, Left Heart, Percutaneous Approach (ICD-10-PCS; 2023-07-12 10:00)
DX: I21.4 Non-ST elevation (NSTEMI) myocardial infarction (principal); I16.1 Hypertensive emergency; F14.10 Cocaine abuse, uncomplicated; F10.10 Alcohol abuse, uncomplicated; G40.909 Epilepsy, unspecified, not intractable, without status epilepticus; E78.5 Hyperlipidemia, unspecified; I25.10 Atherosclerotic heart disease of native coronary artery without angina pectoris; F17.210 Nicotine dependence, cigarettes, uncomplicated; Z20.822 Contact with and (suspected) exposure to COVID-19; Z91.148 Patient's other noncompliance with medication regimen for other reason
CPT/HCPCS: 36415; 71045; 71275; 74174; 80048; 80053; 80061; 80307; 83690; 83735; 83880; 84100; 84484; 85025; 85610; 85730; 87636; 93005; 93306; 93458; A9270; C1760; C1887; C1894; G0269; J0360; J1644; J1940; J2250; J2305; J3010; J7030; J7040; J7120; Q9967